=== PATIENT | male | born 1990 | race African-American/Black ===

== ENCOUNTER 2024-03-07 10:36 | Emergency (ER) | payer SELFPAY ==
[~2024-03-07] VITALS: Ht 175.3 cm; Wt 89.0 kg
[2024-03-07 11:35] LABS: URINE BILIRUBIN - DIPSTICK Negative (NEGATIVE); URINE BLOOD DIPSTICK Trace-intact (NEGATIVE); URINE GLUCOSE - DIPSTICK Negative (NEGATIVE); URINE KETONE Negative (NEGATIVE); URINE NITRITE - DIPSTICK Negative (Negative); URINE PH 7.5 (4.5-8.0); URINE PROTEIN - DIPSTICK Trace mg/dL (NEG-TRACE)
[2024-03-07 11:36] LABS: URINE COLOR Yellow; URINE LEUK ESTERASE Moderate (NEGATIVE)
[2024-03-07 11:42] LABS: URINE BACTERIA FEW hpf; URINE SQUAMOUS EPITHELIAL CELL RARE EPI/hpf (0-FEW); URINE WBC 20-50 WBC/hpf (0-5)
[2024-03-07 11:43] VITALS: BP 130/61
[2024-03-07 12:00] VITALS: BP 129/87
[2024-03-07] MEDS ORDERED: LIDOcaine HCl 1% (Local Anesth.) 20 ML VIAL IM STA (12:18)
[2024-03-07] MEDS ORDERED: AMOX/K CLAV875 M1 PO (12:19)
[2024-03-07] MEDS ORDERED: DOXYCYCLINE100 MG PO (12:19)
[2024-03-07] MEDS ORDERED: cefTRIAXone SODIUM 1 GM/VIAL SDV IM ONE (12:20)
[2024-03-07 12:44] VITALS: BP 129/87
== END 2024-03-07 12:38 | disposition home or self-care (01) | DRG 159 ==
LOC: ED 10:36
PROVIDERS: Family Medicine
DX: S02.5XXA Fracture of tooth (traumatic), initial encounter for closed fracture (principal); A64 Unspecified sexually transmitted disease; X58.XXXA Exposure to other specified factors, initial encounter
CPT/HCPCS: J0696